=== PATIENT | female | born 1955 | race Caucasian/White ===

== ENCOUNTER 2022-05-28 17:24 | Emergency (ER) | payer MEDICARE ==
[2022-05-28 18:50] LABS: INR-International Normal Ratio 1.2; PTT 37.3 sec (22.9-36.1); Prothrombin Time 15.5 sec (12.0-14.7)
[2022-05-28 19:01] LABS: ALT (SGPT) Less than 7 U/L (8-55); AST (SGOT) 9 U/L (5-34); Albumin 2.3 g/dL (3.4-4.8); Alkaline Phosphatase 112 U/L (40-110); Anion Gap 15 mmol/L (10-20); BUN (Urea Nitrogen) 10 mg/dL (9.8-20.1); Bilirubin, Total 0.2 mg/dL (0.2-1.2); Calc. Creatinine Clearance 0 mL/min (70-130); Calcium 7.9 mg/dL (7.8-10.44); Carbon Dioxide 23 mmol/L (23-31); Chloride 102 mmol/L (98-107); Estimated GFR 102; Glucose 94 mg/dL (80-115); Lipase 32 U/L (8-78); Potassium 2.9 mmol/L (3.5-5.1); Protein, Total 5.3 g/dL (5.8-8.1); Sodium 137 mmol/L (136-145)
[2022-05-28 19:15] LABS: #Lymphocytes 1.1 thou/uL (1.20-3.40); #Monocytes 0.7 thou/uL (0.11-0.59); #Neutrophils 12.2 thou/uL (1.40-6.50); %Basophils 0.2 % (0.0-1.0); %Eosinophils 0.3 % (0.0-10.0); %Monocytes 4.9 % (0.0-10.0); %Neutrophils 86.6 % (42.0-75.0); Anisocytosis SLIGHT = 6-15 cells (100X) (0-5/hpf); Band 2 % (5-11); Hemoglobin 4.7 g/dL (12.0-16.0); Hypochromia SLIGHT = 6-15 cells (100X) (0-5/hpf); Lymphocytes 4 % (21-51); MDiff Complete? YES; Mean Corpuscular HGB CONC 31.2 g/dL (32.0-36.0); Mean Corpuscular Hemoglobin 26.9 pg (27.0-31.0); Mean Corpuscular Volume 86.1 fl (78.0-98.0); Mean Platelet Volume 5.8 fL (7.4-10.4); Monocytes 4 % (0-10); Myelocyte 1 % (0-0); Neutrophil 89 % (42-75); Platelet Count 391 10x3/uL (130-400); Platelet Morphology Comment Appears Adequate; RBC Distribution Width 16.5 % (11.5-14.5); Red Blood Cell (RBC) Count 1.75 mill/uL (4.20-5.40); Reflex for Review?? YES
[2022-05-28] MEDS ORDERED: Potassium Chloride 20 MEQ TAB ONE (19:23)
[2022-05-28] MEDS ORDERED: Tranexamic Acid 1,000 MG/10 ML VIAL ONE ×2 (19:25→20:58)
[2022-05-28] MEDS ORDERED: NS 0.9% w/ 20 MEQ KCL 1,000 ML ONE (19:27)
[2022-05-28 19:37] LABS: Magnesium 1.9 mg/dL (1.6-2.6)
== END 2022-05-28 21:33 | disposition short-term general hospital (02) ==
LOC: MADERS 17:24
DX: D64.9 Anemia, unspecified (principal); N93.9 Abnormal uterine and vaginal bleeding, unspecified; C55 Malignant neoplasm of uterus, part unspecified; Z87.891 Personal history of nicotine dependence
CPT/HCPCS: 36415; 36430; 80053; 83690; 83735; 85025; 85060; 85610; 85730; 86850; 86900; 86901; 96374; 96375; 96376; J3480; P9016